=== PATIENT | male | born 2000 | race Caucasian/White ===

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

== ENCOUNTER 2021-02-08 14:45 | Emergency (ER) | payer BC ==
[2021-02-08 15:28] VITALS: BP 133/82; PULSE 86
--- NOTE | 2021-02-08 18:45 | EDM.PDOCBH ---
ED HPI GENERAL MEDICAL PROBLEM - General Chief Complaint: Behavioral/Psych Stated Complaint: MENTAL HEALTH EVAL Time Seen by Provider: 02/08/21 18:41 Source of Information: Reports: Patient History Limitations: Reports: No Limitations - History of Present Illness INITIAL COMMENTS - FREE TEXT/NARRATIVE: Patient is a 20-year-old male with no significant past medical history prese nting with a chief complaint of depression and anxiety. Patient was referred here from clinic. Clinic was concerned about patient needing possible inpatient admission. Clinic provider concerned that patient might be having auditory hallucinations. According the patient, he has been struggling with depression anxiety for a long period of time. He states he is super high highs and extremely low lows. Patient reports when he feels extremely low, he locks himself in the room for a day or 2 at a time. Patient states he does not have any thoughts about hurting himself or ending his life. Patient states he feels a responsibility to his younger siblings. Patient currently does not feel depressed. Otherwise, patient denies any suicidal times in the past or homicidal ideations. Talking about patient's and her thoughts, he states he does not hear any voices other than his own. Patient states he does not have any command hallucinations. Patient states that he deals with intrusive thoughts and often will perseverate on things that her not likely to happen. He does not hear any voices that or not his own. He states he has a hard time controlling these intrusive thoughts but these thoughts are never in the direction of self-harm. Patient states he previously used to use marijuana but denies using any marijuana recently. Patient denies any other drug use. Patient denies alcohol use. Patient does smoke cigarettes. Patient is concerned about possible eating disorder and states he does not eat as much as he should. Patient did eat a sandwich in the waiting room. Patient is present with his significant other and they thought when coming down to the emergency room this is necessary to start medication. Patient states he does not feel like he needs to be admitted to the hospital for this. He does have access to knives at home but no other weaponry or firearms. This is patient's first time coming to the emergency room for these complaints and he has never seen a clinic doctor before for this either. - Related Data Allergies Allergy/AdvReac Type Severity Reaction Status Date / Time No Known Allergies Allergy Verified 06/24/20 11:36 Home Meds: Home Meds . [No Known Home Meds] 02/08/21 [History] Past Medical History HEENT History: Reports: Impaired Vision Other HEENT History: wears eyeglasses. Musculoskeletal History: Reports: Fracture Neurological History: Reports: Seizure Other Neuro History: not Dx'd. Hematologic History: Reports: Anemia - Infectious Disease History Infectious Disease History: Reports: Novel Coronavirus, Other (See Below) Other Infectious Disease History: [place] - Past Surgical History GI Surgical History: Reports: Appendectomy Social & Family History - Family History Family Medical History: No Pertinent Family History - Tobacco Use Tobacco Use Status *Q: Current Every Day Tobacco User Years of Tobacco use: 2 Packs/Tins Daily: 0.5 - Caffeine Use Caffeine Use: Reports: Coffee, Soda, Tea - Recreational Drug Use Recreational Drug Use: Yes Recreational Drug Type: Reports: Ecstasy, LSD (Acid), Other (see below) Other Recreational Drug Type: mushrooms Recreational Drug Last Use: 2 yrs ago - Living Situation & Occupation Living situation: Reports: with Family Occupation: Student ED ROS GENERAL - Review of Systems Review Of Systems: See Below Free Text/Narrative/Comment: In addition to that documented in the HPI above, the additional ROS was obtained: Constitutional: Denies fevers or chills Eyes: Denies vision changes ENMT: Denies sore throat CV: Denies chest pain Resp: Denies SOB GI: Denies vomiting or diarrhea : Denies painful urination MSK: Denies recent trauma Skin: Denies new rashes Neuro: Denies new numbness or tingling or weakness Endocrine: Denies unexpected weight loss Heme: Denies bleeding disorders ED EXAM, BEHAVIORAL HEALTH - Physical Exam Exam: See Below Text/Narrative:: I have reviewed the triage vital signs Const: Well nourished, well developed, appears stated age Eyes: Pupils Equal and reactive to light bilaterally, no conjunctival injection HENT: No signs of trauma or swelling, Neck supple without meningismus CV: Regular Rate Rhythm, Warm, well-perfused extremities RESP: Unlabored respiratory effort MSK: No gross deformities appreciated Skin: Warm, dry. No rashes Neuro: Alert, outside operator II-XII grossly intact. Sensation and motor function of extremities grossly intact. Psych: Appropriate mood and affect. Demonstrates appropriate insight. COURSE, BEHAVIORAL HEALTH COMP - Course Vital Signs: Last Vital Signs Temp 37.2 C 02/08/21 15:26 Pulse 86 02/08/21 15:26 Resp 20 02/08/21 15:26 BP 133/82 02/08/21 15:26 Pulse Ox 99 02/08/21 15:26 Orders, Labs, Meds: Laboratory Tests 02/08/21 02/08/21 02/08/21 Range/Units 18:46 18:46 18:46 WBC 6.84 (4.23-9.07) K/mm3 RBC 5.48 (4.63-6.08) M/mm3 Hgb 15.9 (13.7-17.5) gm/dl Hct 46.8 (40.1-51.0) % MCV 85.4 (79.0-92.2) fl MCH 29.0 (25.7-32.2) pg MCHC 34.0 (32.2-35.5) g/dl RDW Std Deviation 40.2 (35.1-43.9) fL Plt Count 264 (163-337) K/mm3 MPV 10.7 (9.4-12.3) fl Neut % (Auto) 58.3 (34.0-67.9) % Lymph % (Auto) 31.6 (21.8-53.1) % Bond % (Auto) 8.2 (5.3-12.2) % Eos % (Auto) 1.2 (0.8-7.0) Baso % (Auto) 0.4 (0.1-1.2) % Neut # (Auto) 3.99 (1.78-5.38) K/mm3 Lymph # (Auto) 2.16 (1.32-3.57) K/mm3 Bond # (Auto) 0.56 (0.30-0.82) K/mm3 Eos # (Auto) 0.08 (0.04-0.54) K/mm3 Baso # (Auto) 0.03 (0.01-0.08) K/mm3 Sodium 140 (136-145) mEq/L Potassium 3.8 (3.5-5.1) mEq/L Chloride 103 (98-107) mEq/L Carbon Dioxide 30 (21-32) mEq/L Anion Gap 10.8 (5-15) BUN 14 (7-18) mg/dL Creatinine 1.1 (0.7-1.3) mg/dL Est Cr Clr Drug Dosing 74.84 mL/min Estimated GFR (MDRD) > 60 (>60) mL/min BUN/Creatinine Ratio 12.7 L (14-18) Glucose 80 (70-99) mg/dL Calcium 9.6 (8.5-10.1) mg/dL Total Bilirubin 0.4 (0.2-1.0) mg/dL AST 16 (15-37) U/L ALT 21 (16-63) U/L Alkaline Phosphatase 98 (46-116) U/L Total Protein 8.5 H (6.4-8.2) g/dl Albumin 4.7 (3.4-5.0) g/dl Globulin 3.8 gm/dL Albumin/Globulin Ratio 1.2 (1-2) TSH 3rd Generation 2.325 (0.516-4.13) uIU/mL Salicylates 0.4 L (2.8-20) mg/dL Urine Opiates Screen (IMWKYR=272) Ur Buprenorphine Scrn (CUTOFF=10) Ur Oxycodone Screen (LGF0ZF=909) Urine Methadone Screen (ZSO7FT=651) Ur Propoxyphene Screen (HYBTBC=550) Acetaminophen 0 L (10-30) ug/mL Ur Barbiturates Screen (EPRWSE=728) Ur Tricyclics Screen (YZAKYK=632) Ur Phencyclidine Scrn (CUTOFF=25) Ur Amphetamine Screen (EUQTVR=398) U Methamphetamines Scrn (VVWWZD=854) U Benzodiazepines Scrn (WXZCDP=724) U Cocaine Metab Screen (YHANAK=890) U Marijuana (THC) Screen (CUTOFF=50) 02/08/21 Range/Units 19:30 WBC (4.23-9.07) K/mm3 RBC (4.63-6.08) M/mm3 Hgb (13.7-17.5) gm/dl Hct (40.1-51.0) % MCV (79.0-92.2) fl MCH (25.7-32.2) pg MCHC (32.2-35.5) g/dl RDW Std Deviation (35.1-43.9) fL Plt Count (163-337) K/mm3 MPV (9.4-12.3) fl Neut % (Auto) (34.0-67.9) % Lymph % (Auto) (21.8-53.1) % Bond % (Auto) (5.3-12.2) % Eos % (Auto) (0.8-7.0) Baso % (Auto) (0.1-1.2) % Neut # (Auto) (1.78-5.38) K/mm3 Lymph # (Auto) (1.32-3.57) K/mm3 Bond # (Auto) (0.30-0.82) K/mm3 Eos # (Auto) (0.04-0.54) K/mm3 Baso # (Auto) (0.01-0.08) K/mm3 Sodium (136-145) mEq/L Potassium (3.5-5.1) mEq/L Chloride (98-107) mEq/L Carbon Dioxide (21-32) mEq/L Anion Gap (5-15) BUN (7-18) mg/dL Creatinine (0.7-1.3) mg/dL Est Cr Clr Drug Dosing mL/min Estimated GFR (MDRD) (>60) mL/min BUN/Creatinine Ratio (14-18) Glucose (70-99) mg/dL Calcium (8.5-10.1) mg/dL Total Bilirubin (0.2-1.0) mg/dL AST (15-37) U/L ALT (16-63) U/L Alkaline Phosphatase (46-116) U/L Total Protein (6.4-8.2) g/dl Albumin (3.4-5.0) g/dl Globulin gm/dL Albumin/Globulin Ratio (1-2) TSH 3rd Generation (0.516-4.13) uIU/mL Salicylates (2.8-20) mg/dL Urine Opiates Screen Negative (CMFCQN=446) Ur Buprenorphine Scrn Negative (CUTOFF=10) Ur Oxycodone Screen Negative (SJN1YT=467) Urine Methadone Screen Negative (QYV8IQ=936) Ur Propoxyphene Screen Negative (BDPVQX=665) Acetaminophen (10-30) ug/mL Ur Barbiturates Screen Negative (EACKWC=164) Ur Tricyclics Screen Negative (KKYANM=826) Ur Phencyclidine Scrn Negative (CUTOFF=25) Ur Amphetamine Screen Negative (GOELGU=983) U Methamphetamines Scrn Negative (YLJRRQ=303) U Benzodiazepines Scrn Negative (LLQGSZ=428) U Cocaine Metab Screen Negative (QMWDPE=400) U Marijuana (THC) Screen Presumptive positive H (CUTOFF=50) Re-Assessment/Re-Exam: Patient agreeable to safety planning including giving up knives and any medications at home to friend/significant other. Patient will return to the emergency room should any emergent conditions arise. Otherwise, patient will follow up with [facility]. Case to signed out. Departure - Departure Time of Disposition: 19:37 Disposition: Home, Self-Care 01 Clinical Impression: Depressive disorder - Discharge Information Instructions: Major Depressive Disorder, Adult, [id number] Referrals: Nela Copeland MD [Primary Care Provider] - Forms: ED Department Discharge Additional Instructions: Had a [facility] human services tomorrow between the hours of 8am and 4 PM. This is located at [address] [place] [address] If you do not show tomorrow, the may give you a phone call to follow-up. Otherwise, if you have any emergencies, you may call 211 and be connected with him at anytime day or night. - Assessment/Plan Assessment:: Patient is a 20-year-old male presenting to the emergency room with a complaint of depression. During evaluation, patient did not endorse any suicidal ideations, homicidal ideations or auditory hallucinations. Clarification with patient regarding his internal voices seem to be all related to intrusive thoughts which is likely secondary depression as opposed to active hallucinations. Patient is calm and cooperative and agreeable with plan for outpatient management. I do not believe this patient represents immediate threat to himself or others. Was able to speak with on-machine scallop cutter at [facility] states that patient can be seen tomorrow for initial intake and have appropriate care arranged. Safety plan was completed with patient. Patient is medically clear for psychiatric evaluation. Return precautions discussed as usual. Patient discharged with significant other in stable condition.
[2021-02-08 19:36] LABS: ACETAMINOPHEN 0 ug/mL (10-30)
== END 2021-02-08 19:30 | disposition home or self-care (01) ==
LOC: JD.ED 14:45 → SUPCPDRO 14:45 → JD.ED 19:30
DX: F32.A Depression, unspecified (principal); Z72.0 Tobacco use; Z86.16 Personal history of COVID-19
CPT/HCPCS: 36415; 80053; 80143; 80179; 80306; 84443; 85025; 99283